=== PATIENT | male | born 1960 | race Caucasian/White ===

== ENCOUNTER 2016-12-07 13:05 | Emergency (ER) | payer BC ==
[2016-12-07 13:38] VITALS: BP 138/63
--- NOTE | 2016-12-07 13:52 | UC ---
Throat Pain/Nasal Balwinder HPI - HPI Summary HPI Summary: complaint of nasal congestion and cough that satretd approx 8-10 days ago for the last 4-5 days he has started to have right ear pain dsinus pressure that has been increasing frequent headaches last nght felt some chills taken benadryl BID and acetmainophen with some relief no use of albuterol during this illenss denies N/V/D, muscle aches - History of Current Complaint Hx Obtained From: Patient <Rosa Ray - Last Filed: 12/07/16 13:55> <Lorne De La Torre - Last Filed: 12/08/16 11:15> - History of Current Complaint Chief Complaint: UCRespiratory Stated Complaint: EAR/SINUS COMPLAINTS Time Seen by Provider: 12/07/16 13:46 - Allergies/Home Medications Allergies/Adverse Reactions: Allergies Allergy/AdvReac Type Severity Reaction Status Date / Time No Known Allergies Allergy Verified 08/13/16 21:36 PMH/Surg Hx/FS Hx/Imm Hx Previously Healthy: Yes Endocrine History Of: Denies: Diabetes, Thyroid Disease Cardiovascular History Of: Denies: Cardiac Disorders, Hypertension, Congestive Heart Failure Respiratory History Of: Reports: Asthma Denies: COPD GI/ History Of: Denies: Ulcer - Surgical History Surgical History: Yes Surgery Procedure, Year, and Place: HERNIA REPAIR, TONSILLECTOMY, CERVICAL DISCECTOMY - Family History Known Family History: Positive: None, Other - [place] Negative: Cardiac Disease, Hypertension, Diabetes - Social History Occupation: Employed Full-time Lives: With Family Alcohol Use: Rare Substance Use Type: None Smoking Status (MU): Never Smoked Tobacco - Immunization History Most Recent Influenza Vaccination: fall 2012 <Rosa Ray - Last Filed: 12/07/16 13:55> Review of Systems Constitutional: Chills Skin: Negative Eyes: Negative ENT: Ear Ache, Nasal Discharge Respiratory: Cough Cardiovascular: Negative Gastrointestinal: Negative Genitourinary: Negative Motor: Negative Neurovascular: Negative Musculoskeletal: Negative Neurological: Negative Psychological: Negative All Other Systems Reviewed And Are Negative: Yes <Rosa Ray - Last Filed: 12/07/16 13:55> Physical Exam Triage Information Reviewed: Yes Appearance: No Pain Distress, Well-Nourished, Ill-Appearing Vital Signs: Initial Vital Signs Temp 98.7 F 12/07/16 13:36 Pulse 85 03/22/17 13:36 Resp 16 12/07/16 13:36 BP 138/63 12/07/16 13:36 Pulse Ox 99 12/07/16 13:36 Vital Signs Reviewed: Yes Eyes: Positive: Conjunctiva Clear ENT: Positive: Pharyngeal erythema, Nasal congestion, Nasal drainage, TM bulging , Other: - maxillary sinus tenderness. Negative: TM red Neck: Positive: No Lymphadenopathy Respiratory: Positive: Lungs clear, Normal breath sounds, No respiratory distress, No accessory muscle use Cardiovascular: Positive: RRR, No Murmur, Pulses Normal Abdomen Description: Positive: Nontender, Soft Bowel Sounds: Positive: Present Musculoskeletal: Positive: No Edema Neurological: Positive: Alert Psychological Exam: Normal Skin Exam: Normal <Rosa Ray - Last Filed: 12/07/16 13:55> Vital Signs: Initial Vital Signs Temp 98.7 F 12/07/16 13:36 Pulse 85 12/07/16 13:36 Resp 16 12/07/16 13:36 BP 138/63 12/07/16 13:36 Pulse Ox 99 12/07/16 13:36 <Lorne De La Torre - Last Filed: 12/08/16 11:15> Throat Pain/Nasal Course/Dx - Course Course Of Treatment: exam completed. will treat for sinusitis- length of illness/sinustenderness - Differential Dx/Diagnosis Differential Diagnosis/HQI/PQRI: Sinusitis, URI Provider Diagnoses: sinusitis <Rosa Ray - Last Filed: 12/07/16 13:55> - Course Assessment/Plan: I was available for consultation. This patient was seen by mid level provider. The patient was not presented, seen, or examined by me. WR. <Lorne De La Torre - Last Filed: 12/08/16 11:15> Discharge <Rosa Ray - Last Filed: 12/07/16 13:55> <Lorne De La Torre - Last Filed: 12/08/16 11:15> - Discharge Plan Condition: Stable Disposition: HOME Prescriptions: Amoxicillin/Clavulanate TAB* [Augmentin TAB 875*] 875 mg PO BID #20 tab Patient Education Materials: Sinusitis (ED) Referrals: Nomi Garcia MD [Primary Care Provider] - Additional Instructions: SINUSITIS What is Sinusitis? Sinusitis is inflammation or infection of the lining of the sinuses behind the bones in your cheeks or forehead. Sinusitis may occur following a common cold, flu, or other infection; allergies; a tooth infection that spreads to the sinuses; swimming in contaminated water; pressure changes in airplanes at high altitudes; violent sneezing or nose blowing or smoking or breathing other peoples smoke. Symptoms Might Include: Nasal Congestion Sneezing Watery eyes, eye irritation, or eye itching Headaches Pressure in the cheeks Wheezing Trouble smelling Sore throat and coughing may occur Treatment Recommendations: Take medicines as prescribed until completely gone. Drink plenty of fluids. Use saline nose spray to thin the mucous and help the sinuses drain. Use a vaporizer or humidifier. Apply warm compresses to the face or forehead several times a day for 10 to 20 minutes. Call Your Doctor or Return Here IF: Your pain increases during treatment. You develop a high temperature. You develop unusual swelling around the eyes. You have difficulty with your vision. You develop a severe headache, earache, or toothache. You develop increased fever or fever that does not respond to medication such as Tylenol?. You have difficulty breathing or catching your breath. You begin to have any other new symptoms that worry you.
== END 2016-12-07 14:26 | disposition home or self-care (01) ==
LOC: UCEAST 13:05
DX: J32.9 Chronic sinusitis, unspecified (principal)
CPT/HCPCS: 99212; G0463

== ENCOUNTER 2017-04-02 13:50 | Emergency (ER) | payer BC ==
[2017-04-02 16:00] VITALS: BP 114/69
--- NOTE | 2017-04-02 16:14 | UC ---
Skin Complaint HPI - History of Current Complaint Chief Complaint: UCRash Time Seen by Provider: 04/02/17 16:03 Stated Complaint: SHINGLES? AGAIN Hx Obtained From: Patient Onset/Duration: Gradual Onset - started last pm with 'sensation" on upper L back near shoulder, saw red bumps, worse today Onset Severity: Mild Current Severity: Mild Character: Redness, Raised, Painful Aggravating: Touch Alleviating: Nothing Associated Signs & Symptoms: Positive: Negative Similar Episode/Dx as: shingles - Allergy/Home Medications Allergies/Adverse Reactions: Allergies Allergy/AdvReac Type Severity Reaction Status Date / Time No Known Allergies Allergy Verified 08/13/16 21:36 Review of Systems Constitutional: Negative Skin: Rash Respiratory: Negative Cardiovascular: Negative Musculoskeletal: Negative Neurological: Negative Psychological: Negative All Other Systems Reviewed And Are Negative: Yes PMH/Surg Hx/FS Hx/Imm Hx Previously Healthy: Yes Endocrine History: Dyslipidemia - Surgical History Surgical History: Yes Surgery Procedure, Year, and Place: HERNIA REPAIR, TONSILLECTOMY, CERVICAL DISCECTOMY - Family History Known Family History: Positive: None, Other - [place] Negative: Cardiac Disease, Hypertension, Diabetes - Social History Occupation: Employed Full-time Lives: With Family Alcohol Use: Rare Substance Use Type: None Smoking Status (MU): Never Smoked Tobacco - Immunization History Most Recent Influenza Vaccination: fall 2012 Physical Exam Triage Information Reviewed: Yes Appearance: Well-Appearing, No Pain Distress, Well-Nourished Vital Signs: Initial Vital Signs Temp 98.0 F 04/02/17 15:57 Pulse 64 04/02/17 15:57 Resp 18 04/02/17 15:57 BP 114/69 04/02/17 15:57 Pulse Ox 97 04/02/17 15:57 Vital Signs Reviewed: Yes Respiratory Exam: Normal Cardiovascular Exam: Normal Neurological Exam: Normal Psychological Exam: Normal Skin: Positive: rashes - erythemic, tender, vesicular lesions upper L back Course/Dx - Differential Diagnoses - Skin Complaint Differential Diagnoses: Cellulitis, Contact Dermatitis, Local Allergic Reaction , Poison Jaleesa, Varicella Zoster - Diagnoses Provider Diagnoses: shingles Discharge - Discharge Plan Condition: Stable Disposition: HOME Prescriptions: ValACYclovir (*) [Valtrex 1 GM(*)] 1 gm PO TID #18 tab Patient Education Materials: Shingles (ED) Referrals: Nomi Garcia MD [Primary Care Provider] - 1 Week (if not resolved) Additional Instructions: start antivirals today as prescribed
[2017-04-02] MEDS ORDERED: Acyclovir* 200 MG CAP PO ONE ×2 (16:16→16:20)
== END 2017-04-02 16:39 | disposition home or self-care (01) ==
LOC: UCEAST 13:50
DX: B02.9 Zoster without complications (principal)
CPT/HCPCS: 99212; A9270-GY; G0463

== ENCOUNTER 2017-10-16 13:12 | Emergency (ER) | payer BC ==
[2017-10-16 15:24] VITALS: BP 131/80
--- NOTE | 2017-10-16 15:41 | UC ---
Throat Pain/Nasal Balwinder HPI - HPI Summary HPI Summary: Pt presents with sinus pain/pressure/congestion and right ear pain for 1 week. He has been taking benadryl and using nasacort with little relief. Denies fever , chills, SOB, chest pain, abdominal pain, n/v/d/c, body aches. - History of Current Complaint Chief Complaint: UCRespiratory Stated Complaint: CONGESTED Time Seen by Provider: 10/16/17 15:28 Hx Obtained From: Patient Onset/Duration: Gradual Onset Severity: Mild Pain Intensity: 3 Pain Scale Used: 0-10 Numeric - Allergies/Home Medications Allergies/Adverse Reactions: Allergies Allergy/AdvReac Type Severity Reaction Status Date / Time No Known Allergies Allergy Verified 10/16/17 15:25 PMH/Surg Hx/FS Hx/Imm Hx Previously Healthy: Yes Endocrine History: Dyslipidemia - Surgical History Surgical History: Yes Surgery Procedure, Year, and Place: HERNIA REPAIR, TONSILLECTOMY, CERVICAL DISCECTOMY - Family History Known Family History: Positive: None, Other - [place] Negative: Cardiac Disease, Hypertension, Diabetes - Social History Occupation: Employed Full-time Lives: With Family Alcohol Use: Rare Substance Use Type: None Smoking Status (MU): Never Smoked Tobacco - Immunization History Most Recent Influenza Vaccination: fall 2012 Review of Systems Constitutional: Negative Skin: Negative Eyes: Negative ENT: Ear Ache, Nasal Discharge, Sinus Congestion, Sinus Pain/Tenderness Respiratory: Negative Cardiovascular: Negative Gastrointestinal: Negative Neurological: Negative Psychological: Negative All Other Systems Reviewed And Are Negative: Yes Physical Exam Triage Information Reviewed: Yes Appearance: Well-Appearing, No Pain Distress, Well-Nourished Vital Signs: Initial Vital Signs Temp 98.6 F 10/16/17 15:21 Pulse 92 10/16/17 15:21 Resp 18 10/16/17 15:21 BP 131/80 10/16/17 15:21 Pulse Ox 100 10/16/17 15:21 Vital Signs Reviewed: Yes Eyes: Positive: Conjunctiva Clear. Negative: Conjunctiva Inflamed, Discharge ENT: Positive: Hearing grossly normal, Pharynx normal, Nasal congestion, Nasal drainage, TMs normal, Sinus tenderness. Negative: Pharyngeal erythema, TM bulging, TM dull, TM red, Tonsillar swelling, Tonsillar exudate, Hoarse voice, Uvula midline Neck: Positive: Supple, Nontender, No Lymphadenopathy Respiratory: Positive: Chest non-tender, Lungs clear, Normal breath sounds, No respiratory distress, No accessory muscle use Cardiovascular: Positive: RRR, No Murmur, Pulses Normal Neurological: Positive: Alert. Negative: Fatigued Psychological: Positive: Age Appropriate Behavior Skin: Negative: rashes Throat Pain/Nasal Course/Dx - Course Course Of Treatment: Sinusitis - Amoxicillin - Differential Dx/Diagnosis Provider Diagnoses: Sinusitis Discharge - Discharge Plan Condition: Stable Disposition: HOME Prescriptions: Amoxicillin PO (*) [Amoxicillin 500 MG CAP*] 500 mg PO Q12H #20 cap Patient Education Materials: Sinusitis (ED) Referrals: Nomi Garcia MD [Primary Care Provider] - Additional Instructions: If you develop a fever, shortness of breath, chest pain, new or worsening symptoms - please call your PCP or go to the ED.
== END 2017-10-16 16:20 | disposition home or self-care (01) ==
LOC: UCEAST 13:12
DX: J32.9 Chronic sinusitis, unspecified (principal)
CPT/HCPCS: 99212; G0463

== ENCOUNTER 2017-10-20 18:18 | Emergency (ER) | payer BC ==
[2017-10-20 18:31] VITALS: BP 139/74
--- NOTE | 2017-10-20 21:07 | UC ---
Respiratory Complaint HPI - HPI Summary HPI Summary: States he has been taking amoxil as prescribed since 10-16-17 but has been awoken by wheezing sound and has some SOB with persistent dry cough. He has been moving and inhaling a lot of dust. History of seasonal allergies an to dust , denies history of asthma or exposure to tobacco or fumes. States several years ago he had pneumonia right lung and had to stay in ICU for a week. He wants to confirm his lungs are fine. - History of Current Complaint Chief Complaint: UCRespiratory Stated Complaint: URI Time Seen by Provider: 10/20/17 20:38 Hx Obtained From: Patient Onset/Duration: Sudden Onset, Lasting Days Timing: Intermittent Episodes Severity Initially: Moderate Pain Intensity: 0 Character: Cough: Nonproductive Aggravating Factors: Allergens Alleviating Factors: Upright Position Associated Signs And Symptoms: Positive: Dyspnea Related History: Seasonal Allergies - Risk Factors Pulmonary Embolism Risk Factors: Negative Cardiac Risk Factors: Negative Pseudomonas Risk Factors: Negative Tuberculosis Risk Factors: Negative - Allergies/Home Medications Allergies/Adverse Reactions: Allergies Allergy/AdvReac Type Severity Reaction Status Date / Time No Known Allergies Allergy Verified 10/16/17 15:25 PMH/Surg Hx/FS Hx/Imm Hx Previously Healthy: Yes Endocrine History: Dyslipidemia Psychological History: Other - insomnia Other Psychological History: insomnia - Surgical History Surgical History: Yes Surgery Procedure, Year, and Place: HERNIA REPAIR, TONSILLECTOMY, CERVICAL DISCECTOMY - Family History Known Family History: Positive: None, Other - [place] Negative: Cardiac Disease, Hypertension, Diabetes - Social History Alcohol Use: Rare Substance Use Type: None Smoking Status (MU): Never Smoked Tobacco - Immunization History Most Recent Influenza Vaccination: fall 2012 Review of Systems Constitutional: Chills Respiratory: Shortness Of Breath, Cough All Other Systems Reviewed And Are Negative: Yes Physical Exam Triage Information Reviewed: Yes Appearance: Well-Appearing Vital Signs: Initial Vital Signs Temp 97.4 F 10/20/17 18:28 Pulse 70 10/20/17 18:28 Resp 18 10/20/17 18:28 BP 139/74 10/20/17 18:28 Pulse Ox 98 10/20/17 18:28 Vital Signs Reviewed: Yes Eye Exam: Normal ENT Exam: Normal Dental Exam: Normal Neck exam: Normal Respiratory: Positive: Rhonchi, Wheezing, Inspiration Cardiovascular Exam: Normal Abdominal Exam: Normal UC Diagnostic Evaluation - Laboratory O2 Sat by Pulse Oximetry: 98 Respiratory Course/Dx - Course Course Of Treatment: start inhaler, reviewed technique with patient. Avoid allergens CXR findings of Left lower lung atelectasies. Breathing exercises - Differential Dx/Diagnosis Provider Diagnoses: Bronchitis. Left lower lung atelectasies, history of pneumonia in the past Discharge - Discharge Plan Condition: Stable Disposition: HOME Patient Education Materials: Acute Bronchitis (ED), Atelectasis (ED) Referrals: Nomi Garcia MD [Primary Care Provider] -
--- NOTE | 2017-10-20 21:24 | RAD ---
INDICATION: Cough and shortness of breath. COMPARISON: Comparison is made with a prior chest x-ray study from April 16, 2016. TECHNIQUE: Dual-energy PA and lateral views of the chest were obtained. FINDINGS: The heart is within normal limits in size. Mediastinal and hilar contours appear within normal limits. The lungs are underinflated. There are linear densities at the left lung base most consistent with subsegmental atelectasis. The lungs are otherwise clear. No pleural effusion is seen. Postsurgical changes are noted in the lower cervical spine. IMPRESSION: LOW LUNG VOLUMES MILD LEFT BASILAR ATELECTASIS.
== END 2017-10-20 21:58 | disposition home or self-care (01) ==
LOC: UCEAST 18:18
DX: J40 Bronchitis, not specified as acute or chronic (principal); J98.11 Atelectasis; Z87.01 Personal history of pneumonia (recurrent)
CPT/HCPCS: 71046; 99212; G0463

== ENCOUNTER 2017-11-19 11:32 | Emergency (ER) | payer BC ==
[2017-11-19 12:15] VITALS: BP 128/73
--- NOTE | 2017-11-19 12:29 | UC ---
Respiratory Complaint HPI - HPI Summary HPI Summary: 57 y/o male presents to the urgent care c/o influenza-like symptoms, MILLIGAN, productive cough fever, chills,sore throat, body aches, chills. Pt reports his PCP Dx clinically w. Influenza and Rx Tamiflu PO on 11/14/2017. No swab done. Pt still w/ fevers, chills, decrease appetite, body aches and productive cough w/ yellowish phlegm. He has Hx of pneumonia about 2 years ago where he end up at the ICU. So he is concern w/ pneumonia. Pt has been taking Tylenol PO to alleviate symptoms. Pt denies SOB, chest pain, abdominal pain, N/V/D. - History of Current Complaint Chief Complaint: UCRespiratory Stated Complaint: FLU SYMPTOMS Time Seen by Provider: 11/19/17 12:22 Hx Obtained From: Patient Onset/Duration: Gradual Onset, Lasting Days - 5 days, Still Present, Worse Since - yesterday Timing: Constant Severity Initially: Mild Severity Currently: Moderate Pain Intensity: 7 Pain Scale Used: 0-10 Numeric Character: Cough: Productive, Sputum Description: - yellowish sputum Aggravating Factors: Recumbent Position Alleviating Factors: Bronchodilator, OTC Meds Associated Signs And Symptoms: Positive: Fever, Chills, URI, Nasal Congestion, Sinus Discomfort - Risk Factors Pulmonary Embolism Risk Factors: Negative Cardiac Risk Factors: Elevated Lipids Tuberculosis Risk Factors: Negative - Allergies/Home Medications Allergies/Adverse Reactions: Allergies Allergy/AdvReac Type Severity Reaction Status Date / Time No Known Allergies Allergy Verified 11/19/17 12:15 Home Medications: Home Medications Albuterol HFA INHALER* [Ventolin HFA Inhaler*] 1 puff INH DAILY 11/19/17 [ History Confirmed 11/19/17] Oseltamivir CAP* [Tamiflu CAP*] 1 tab PO BID 11/19/17 [History Confirmed ] PMH/Surg Hx/FS Hx/Imm Hx Previously Healthy: Yes Endocrine History: Dyslipidemia Respiratory History: Pneumonia Other Respiratory History: recurrent sinusitis - Surgical History Surgical History: Yes Surgery Procedure, Year, and Place: HERNIA REPAIR, TONSILLECTOMY, CERVICAL DISCECTOMY - Family History Known Family History: Positive: Cardiac Disease - [place] Negative: Hypertension, Diabetes - Social History Occupation: Employed Full-time Lives: With Family Alcohol Use: Rare Substance Use Type: None Smoking Status (MU): Never Smoked Tobacco - Immunization History Most Recent Influenza Vaccination: fall 2012 Review of Systems Constitutional: Fever, Chills, Fatigue, Other - body aches Skin: Negative Eyes: Negative ENT: Sore Throat, Ear Ache - B/L ear pain, Nasal Discharge, Sinus Congestion, Sinus Pain/Tenderness Respiratory: Cough - productive Cardiovascular: Negative Gastrointestinal: Negative Genitourinary: Negative Motor: Negative Musculoskeletal: Negative Neurological: Headache Psychological: Negative Is Patient Immunocompromised?: No All Other Systems Reviewed And Are Negative: Yes Physical Exam Triage Information Reviewed: Yes Vital Signs: Initial Vital Signs Temp 97.5 F 11/19/17 12:11 Pulse 89 11/19/17 12:11 Resp 18 11/19/17 12:11 BP 128/73 11/19/17 12:11 Pulse Ox 100 11/19/17 12:11 - Additional Comments VITAL SIGNS: Reviewed. GENERAL: Patient is a well developed and nourished male who is sitting comfortable in the examining table. Patient is not in any acute respiratory distress. HEAD AND FACE: No signs of trauma. No ecchymosis, hematomas or skull depressions. No sinus tenderness. edematous erythematous nasal mucosa with yellowish discharge, EYES: PERRLA, EOMI x 2, No injected conjunctiva, clear watery eyes, no nystagmus. No photophobia. EARS: Hearing grossly intact. Ear canals and tympanic membranes are within normal limits. MOUTH: Positive pharynx with erythema, no exudates,no palatal petechiae. no B/L tonsillar enlargement Uvula in midline. NECK: Supple, trachea is midline, Positive anterior cervical lymphadenopathy, no JVD, no carotid bruit, no c-spine tenderness, neck with full ROM. No meningeal signs, no Kernig's or brudzinskis signs. CHEST: Symmetric, no tenderness at palpation LUNGS: Positive breath sound . B/L scattered crackels LF>RT and rhonchi. No wheezing or rales CVS: Regular rate and rhythm, S1 and S2 present, no murmurs or gallops appreciated. ABDOMEN: Soft, non-tender. No signs of distention. No rebound no guarding, and no masses palpated. Bowel sounds are normal. EXTREMITIES: FROM in all major joints, no edema, no cyanosis or clubbing. NEURO: Alert and oriented x 3. No acute neurological deficits. Speech is normal and follows commands. SKIN: Dry and warm UC Diagnostic Evaluation - Laboratory O2 Sat by Pulse Oximetry: 100 Respiratory Course/Dx - Course Course Of Treatment: 57 y/o male presents to the urgent care c/o influenza-like symptoms, MILLIGAN, productive cough fever, chills,sore throat, body aches, chills. Pt reports his PCP Dx clinically w. Influenza and Rx Tamiflu PO on 11/14/2017. No swab done. Pt still w/ fevers, chills, decrease appetite, body aches and productive cough w/ yellowish phlegm. He has Hx of pneumonia about 2 years ago where he end up at the ICU. So he is concern w/ pneumonia. Pt has been taking Tylenol PO to alleviate symptoms. Pt denies SOB, chest pain, abdominal pain, N/V /D. Hx obtained. Pt w/ scatterred crackles and rhonchi in B/L lungs LF>RT on examiantion, O2Sat:100%. Chest -X ray ordered to r/o pneumonia. Impression: Patchy left side infiltrates observed. Pt still taking Tamiflu PO. Pt Rx Doxicycline PO and Benzonate tabs PO to alleviate cough. Pt advised to f/u w/ PCP in 2-3 days for re-check on symptoms. Ifworsening symptom to go immediately to the ER for further treatment. Advised to increase fluid, eat well and rest. Pt understood and agreed w/ plan of care. - Differential Dx/Diagnosis Differential Diagnosis/HQI/PQRI: Bronchitis, Influenza, Lower Resp Infection, Sinusitis, Other - Pneumonia Provider Diagnoses: 1-Pneumonia. 2-Cough Discharge - Discharge Plan Condition: Stable Disposition: HOME Prescriptions: Benzonatate CAP* [Tessalon 100 MG CAP*] 100 mg PO TID PRN #21 cap PRN Reason: Cough DOXYcycline CAP(*) [DOXYcycline 100MG CAP(*)] 100 mg PO BID #20 cap Patient Education Materials: Community Acquired Pneumonia (ED) Forms: *Work Release Referrals: Nomi Garcia MD [Primary Care Provider] - 3 Days Additional Instructions: 1-Please take full course of antibiotic to avoid resistance. 2-Take Tessalon tabs PO as directed and continue use the Ventolin inhaler to alleviate cough. Increase fluid intake, rest and eat well. 3- If symptoms do not improve or worsen or your develop SOB with fever and severe cough please go immediately to the ER further evaluation and treatment. 4-See your PCP in 2-3 days to check your symptoms are improving
--- NOTE | 2017-11-19 13:03 | RAD ---
INDICATION: Cough. Fever. COMPARISON: October 20, 2017 TECHNIQUE: PA and lateral dual-energy views were obtained. FINDINGS: Bones/Soft Tissues: There are no acute bony findings. Cardiomediastinal: The cardiomediastinal silhouette is normal. Lungs: There are patchy left-sided infiltrates. The remaining lung harvey are clear. Pleura: There are no pleural effusions. Other: None IMPRESSION: PATCHY LEFT-SIDED INFILTRATES.
== END 2017-11-19 13:29 | disposition home or self-care (01) ==
LOC: UCEAST 12:00
DX: J11.1 Influenza due to unidentified influenza virus with other respiratory manifestations (principal); R50.9 Fever, unspecified; R05 Cough; E78.5 Hyperlipidemia, unspecified
CPT/HCPCS: 71046; 99212; G0463

== ENCOUNTER 2018-09-08 12:22 | Emergency (ER) | payer BC ==
[2018-09-08 13:08] VITALS: BP 133/65
--- NOTE | 2018-09-08 13:11 | UC ---
Respiratory Complaint HPI - HPI Summary HPI Summary: 58 yo male presents with productive cough for the last week. He has been taking mucinex OTC. He has had PNA in the past and is concerned it may be that again. Denies fever, chills, sore throat, SOB, chest pain, n/v. - History of Current Complaint Chief Complaint: UCGeneralIllness Stated Complaint: COUGH,CONGESTION Time Seen by Provider: 09/08/18 13:10 Hx Obtained From: Patient Onset/Duration: Gradual Onset Severity Initially: Mild Severity Currently: Mild Pain Intensity: 3 Pain Scale Used: 0-10 Numeric Character: Cough: Productive - Allergies/Home Medications Allergies/Adverse Reactions: Allergies Allergy/AdvReac Type Severity Reaction Status Date / Time No Known Allergies Allergy Verified 09/08/18 13:08 Home Medications: Home Medications Acetaminophen [Tylenol] 325 mg PO DAILY PRN 09/08/18 [History Confirmed 09/08/18 ] PMH/Surg Hx/FS Hx/Imm Hx Endocrine History: Dyslipidemia - Surgical History Surgical History: Yes Surgery Procedure, Year, and Place: HERNIA REPAIR, TONSILLECTOMY, CERVICAL DISCECTOMY - Family History Known Family History: Positive: Cardiac Disease - [place], Other - [place] Negative: Hypertension, Diabetes - Social History Occupation: Employed Full-time Lives: With Family Alcohol Use: Occasionally Substance Use Type: None Smoking Status (MU): Never Smoked Tobacco - Immunization History Most Recent Influenza Vaccination: fall 2012 Review of Systems All Other Systems Reviewed And Are Negative: Yes Constitutional: Positive: Negative Skin: Positive: Negative Eyes: Positive: Negative ENT: Positive: Negative Respiratory: Positive: Cough Cardiovascular: Positive: Negative Gastrointestinal: Positive: Negative Neurovascular: Positive: Negative Neurological: Positive: Negative Psychological: Positive: Negative Physical Exam - Summary Physical Exam Summary: GENERAL: NAD. WDWN. No pain distress. SKIN: No rashes, sores, lesions, or open wounds. HEENT: Head: AT/NC Eyes: EOM intact. Conjunctiva clear without inflammation or discharge. Ears: Hearing grossly normal. TMs intact, no bulging, erythema, or edema. Nose: Nasal mucosa pink and moist. NTTP maxillary and frontal sinus. Throat: Posterior oropharynx without exudates or erythema. Uvula midline. NECK: Supple. Nontender. No lymphadenopathy. CHEST: CTAB. No r/r/w. No accessory muscle use. Breathing comfortably and in no distress. CV: RRR. Without m/r/g. Pulses intact. Cap refill <2seconds NEURO: Alert. PSYCH: Age appropriate behavior. Triage Information Reviewed: Yes Vital Signs: Initial Vital Signs Temp 97 F 09/08/18 13:01 Pulse 88 09/08/18 13:01 Resp 18 09/08/18 13:01 BP 133/65 09/08/18 13:01 Pulse Ox 97 09/08/18 13:01 Vital Signs Reviewed: Yes Diagnostic Evaluation - Laboratory O2 Sat by Pulse Oximetry: 97 Respiratory Course/Dx - Course Course Of Treatment: CXR: IMPRESSION: Left basilar atelectasis without definite evidence of pneumonia. Suspect viral cough. Advised pt to continue mucinex and try Delsym OTC. F/u if symptoms persist or worsen for a recheck. - Differential Dx/Diagnosis Provider Diagnosis: Cough Discharge - Sign-Out/Discharge Documenting (check all that apply): Patient Departure All imaging exams completed and their final reports reviewed: Yes - Discharge Plan Condition: Stable Disposition: HOME Patient Education Materials: Dextromethorphan (By mouth), Acute Cough (ED) Referrals: Nomi Garcia MD [Primary Care Provider] - Additional Instructions: If you develop a fever, shortness of breath, chest pain, new or worsening symptoms - please call your PCP or go to the ED. - Billing Disposition and Condition Condition: STABLE Disposition: Home
== END 2018-09-08 13:58 | disposition home or self-care (01) ==
LOC: UCEAST 12:22
DX: R05 Cough (principal)
CPT/HCPCS: 71046; 99211; G0463

== ENCOUNTER 2018-11-24 18:53 | Emergency (ER) | payer BC ==
[2018-11-24 19:01] VITALS: BP 147/79
[2018-11-24] MEDS ORDERED: Albuterol/Ipratropium NEB.SOL* Albuterol 2.5 MG/Ipratropium 0.5 MG 3 ML INH ONE (19:11)
--- NOTE | 2018-11-24 19:11 | UC ---
Respiratory Complaint HPI - HPI Summary HPI Summary: 2 weeks ago began with cough no fever and no known illness exposures---seen pcp rx albuterol and steroid MDI---wheezing seems to have started a few days ago and is now getting worse at night---still no fevers - History of Current Complaint Chief Complaint: UCRespiratory Stated Complaint: CONGESTED Time Seen by Provider: 11/24/18 19:05 Hx Obtained From: Patient Onset/Duration: Gradual Onset, Lasting Days, Still Present Timing: Intermittent Episodes - seems worse at night Pain Intensity: 0 Pain Scale Used: 0-10 Numeric Character: Cough: Nonproductive Aggravating Factors: Recumbent Position Alleviating Factors: Bronchodilator Associated Signs And Symptoms: Positive: URI - Allergies/Home Medications Allergies/Adverse Reactions: Allergies Allergy/AdvReac Type Severity Reaction Status Date / Time No Known Allergies Allergy Verified 11/24/18 19:02 PMH/Surg Hx/FS Hx/Imm Hx Previously Healthy: No Endocrine History: Dyslipidemia - Surgical History Surgical History: Yes Surgery Procedure, Year, and Place: HERNIA REPAIR, TONSILLECTOMY, CERVICAL DISCECTOMY - Family History Known Family History: Positive: None, Cardiac Disease - [place], Other - [place] Negative: Hypertension, Diabetes - Social History Occupation: Employed Full-time Lives: With Family Alcohol Use: Occasionally Substance Use Type: None Smoking Status (MU): Never Smoked Tobacco - Immunization History Most Recent Influenza Vaccination: fall 2012 Review of Systems All Other Systems Reviewed And Are Negative: Yes Constitutional: Positive: Negative Skin: Positive: Negative Eyes: Positive: Negative ENT: Positive: Negative Respiratory: Positive: Cough Cardiovascular: Positive: Negative Gastrointestinal: Positive: Negative Genitourinary: Positive: Negative Motor: Positive: Negative Neurovascular: Positive: Negative Musculoskeletal: Positive: Negative Neurological: Positive: Negative Psychological: Positive: Negative Is Patient Immunocompromised?: No Physical Exam Triage Information Reviewed: Yes Appearance: Well-Appearing, No Pain Distress, Well-Nourished Vital Signs: Initial Vital Signs Temp 98.5 F 11/24/18 18:58 Pulse 92 11/24/18 18:58 Resp 16 11/24/18 18:58 BP 147/79 11/24/18 18:58 Pulse Ox 95 11/24/18 18:58 Vital Signs Reviewed: Yes Eye Exam: Normal Eyes: Positive: Conjunctiva Clear ENT Exam: Normal ENT: Positive: Normal ENT inspection, Hearing grossly normal, Pharynx normal, Pharyngeal erythema, TMs normal, Uvula midline. Negative: Nasal congestion, Tonsillar swelling, Tonsillar exudate, Trismus, Muffled voice, Hoarse voice, Dental tenderness, Sinus tenderness Dental Exam: Normal Neck exam: Normal Neck: Positive: Supple, Nontender, No Lymphadenopathy Respiratory Exam: Normal Respiratory: Positive: Chest non-tender, Lungs clear, Normal breath sounds, No respiratory distress, No accessory muscle use Cardiovascular Exam: Normal Cardiovascular: Positive: RRR, No Murmur, Pulses Normal, Brisk Capillary Refill Musculoskeletal Exam: Normal Musculoskeletal: Positive: Strength Intact, ROM Intact, No Edema Neurological Exam: Normal Neurological: Positive: Alert, Muscle Tone Normal Psychological Exam: Normal Skin Exam: Normal Respiratory Course/Dx - Course Course Of Treatment: improved aeration after neb--will start on zithromax and use spacer with inhalers---follow blood pressure and resolve of bronchititis with pcp in 1 week - Differential Dx/Diagnosis Provider Diagnosis: Bronchitis, Hypertension Discharge - Sign-Out/Discharge Documenting (check all that apply): Patient Departure All imaging exams completed and their final reports reviewed: No Studies - Discharge Plan Condition: Stable Disposition: HOME Prescriptions: Azithromycin TAB* [Zithromax TAB (Z-CLINT) 250 mg #6 tabs] 250 mg PO DAILY #4 tab Patient Education Materials: Acute Bronchitis (ED), Hypertension (ED), Bronchospasm (ED), How to Use a Metered-Dose Inhaler and a Spacer (ED) Referrals: Nomi Garcia MD [Primary Care Provider] - 1 Week - Billing Disposition and Condition Condition: STABLE Disposition: Home
[2018-11-24] MEDS ORDERED: Azithromycin TAB* 250 MG PO ONE (19:36)
== END 2018-11-24 19:59 | disposition home or self-care (01) ==
LOC: UCEAST 18:53
DX: J40 Bronchitis, not specified as acute or chronic (principal); I10 Essential (primary) hypertension; E78.5 Hyperlipidemia, unspecified
CPT/HCPCS: 99212; A9270-GY; G0463

== ENCOUNTER 2019-01-15 10:25 | Emergency (ER) | payer BC ==
[2019-01-15 10:51] VITALS: BP 122/70
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
== END 2019-01-15 11:10 | disposition home or self-care (01) ==
LOC: UCEAST 10:25
DX: H66.91 Otitis media, unspecified, right ear (principal); E78.5 Hyperlipidemia, unspecified
CPT/HCPCS: 99212; G0463

== ENCOUNTER 2019-07-01 15:02 | Emergency (ER) | payer BC ==
--- OUTSIDE RECORDS SUMMARY | 2019-07-01 15:07 | XMS REPORT | Continuity of Care Document ---
:1960 External Reference #:[id number] Author Name Quincy Cross DO Address [address] [place] [id number] Care Team Providers Name Role Phone Nomi Garcia MD - Family Medicine Care Team Information Web Marketing Intern [phone] Problems Description No Information Available Social History Type Date Description Comments Sex Unknown Tobacco Use Start: Unknown Patient has never smoked Smoking Status Reviewed: 04/12/19 Patient has never smoked Allergies, Adverse Reactions, Alerts Description No Known Drug Allergies Medications Active Medications SIG Qnty Indications Ordering Provider Date Hydrocodone-Acetamino 1 by mouth every 40tabs Nomi Garcia MD 03/05/2019 phen 4 h as needed 5-325mg Tablets Zolpidem Tartrate Take 1 To 2 60tabs Nomi Garcia MD 12/13/2018 5mg Tablets By Mouth Tablets AT Bedtime as Needed For Sleep, Maximum Daily Dose Of 2 Tablets Omeprazole 1 by mouth daily 90caps K21.0 [facility], 12/05/2018 40mg on empty HAL Gerardo Capsules DR stomach, no other meds or food for 20-30 mins Mometasone Furoate apply three 45units Nomi Garcia MD 08/23/2018 0.1% times a day as Cream needed Sildenafil Citrate take 1/2- 1 10tabs Nomi Garcia MD 08/23/2018 50mg tablet one hour Tablets prior to sexual relations, maximum daily dose 1 tablet Pravastatin Sodium 1 by mouth every 90tabs Jorge Luis Gillespie, 07/26/2015 80mg day MD Tablets Fluticasone inhale 2 sprays 16units Nomi Garcia MD 09/08/2012 Propionate in each nostril 50mcg/Act daily Suspension Benadryl Dye-Free 1 tab PO Q am Unknown Allergyliquid-Gels 25mg Capsules History Medications Levofloxacin 1 by mouth 10tabs H10.021 [place], 02/27/2019 - 500mg every day for Humaira MOSS GATHERER 04/12/2019 Tablets 10 days Sulfacetamide Sodium 1-2 drops into 15units H10.021 AmadoucamrynNaida, - affected eye MOSS GATHERER 04/12/2019 10% Solution every four hours while awake until clear, continue for one more day. not to exceed 7 days of use Immunizations Description No Information Available Vital Signs Date Vital Result Comment 04/12/2019 2:33pm Height 67.5 inches 5'7.50" Weight 200.00 lb BP Systolic 123 mmHg BP Diastolic 73 mmHg Heart Rate 66 /min BMI (Body Mass Index) 30.9 kg/m2 Results Test Date Facility Test Result H/L Range Note Xray 03/20/2019 [facility] Radiology Chest PA & Lat <pending> 2VWS Ua 02/27/2019 [facility] WBC <pending> Microscopic(!) Ua RBC <pending> Ua Epithelial Cells <pending> Ua Crystals <pending> Ua Bacteria <pending> [facility]a Mucous <pending> Ua Amorphous <pending> Ua Yeast <pending> Ua Casts <pending> CBC W/Auto 02/27/2019 [facility] White Blood <pending> Differential(!) Count Ser Auto CNT RBC Red Blood Count <pending> Hemoglobin Blood <pending> Hematocrit <pending> MCV (Corpuscular Volume) <pending> MCH (Corpuscular Hemoglobin) <pending> MCHC (Corpuscular Hemog Conc) <pending> RDW <pending> Platelet Count Blood Auto CNT <pending> MPV <pending> Lymph% <pending> [place]% <pending> Neutrophil % <pending> Absolute Lymphocytes <pending> Absolute Monocytes <pending> Absolute Neutrophils <pending> CMP(!) 02/27/2019 [facility] Sodium(!) <pending> Potassium(!) <pending> Chloride Serum/Plasma(!) <pending> Carbon Dioxide Ser/Plasm(!) <pending> BUN - Urea Nitrogen(!) <pending> Calcium Ser/Plasma Mass/Vol(!) <pending> Creatinine Serum Mass/Vol(!) <pending> Glucose Serum(!) <pending> BUN/Creatinine Ratio(!) <pending> Albumin Serum/Plasma(!) <pending> Alkaline Phosphatase(!) <pending> Bilirubin Total Mass/Vol(!) <pending> Ast - Sgot <pending> Alt - SGPT <pending> Protein Total <pending> CBC Auto Diff 02/27/2019 N2N/CCD Import White Blood Count 9.4 10^3/uL 3.5-10.8 Red Blood Count 4.90 10^6/uL 4.18-5.48 Hemoglobin 13.4 g/dL Low 14-18 Hematocrit 40 % Low 42-52 Mean Corpuscular Volume 82 fL 80-94 Mean Corpuscular Hemoglobin 27 pg 27-31 Mean Corpuscular HGB Conc 33 g/dL 31-36 Red Cell Distribution Width 14 % 10-15 Platelet Count 326 10^3/uL 150-450 Mean Platelet Volume 8.0 fL 7.4-10.4 Abs Neutrophils 5.7 10^3/uL 1.5-7.7 Abs Lymphocytes 2.4 10^3/uL 1-4.8 Abs Monocytes 1.1 10^3/uL High 0-0.8 Abs Eosinophils 0.1 10^3/uL 0-0.6 Abs Basophils 0.1 10^3/uL 0-0.2 Abs Nucleated RBC 0.0 10^3/uL Granulocyte % 60.7 % Lymphocyte % 25.6 % Monocyte % 11.3 % Eosinophil % 1.5 % Basophil % 0.9 % Nucleated Red Blood Cells % 0.0 1 Urinalysis Profile 02/27/2019 N2N/flikdate Import Urine Color Yellow Urine Appearance Clear Urine Specific Upson 1.004 1 Low 1.01-1.03 Urine pH 7.0 1 5-9 Urine Urobilinogen Negative Urine Ketones Negative Urine Protein Negative Urine Leukocytes Negative Urine Blood Negative Urine Nitrite Negative Urine Bilirubin Negative Urine Glucose Negative Comp Metabolic Panel 02/27/2019 N2N/flikdate Import Sodium 142 mmol/L 135- 145 Potassium 4.2 mmol/L 3.5-5 Chloride 106 mmol/L 101-111 Co2 Carbon Dioxide 29 mmol/L 22-32 Anion Gap 7 mmol/L 2-11 Glucose 87 mg/dL 70-100 Blood Urea Nitrogen 8 mg/dL 6-24 Creatinine 0.72 mg/dL 0.67-1.17 BUN/Creatinine Ratio 11.1 1 8-20 Calcium 8.8 mg/dL 8.6-10.3 Total Protein 5.3 g/dL Low 6.4-8.9 Albumin 3.9 g/dL 3.2-5.2 Globulin 1.4 g/dL Low 2-4 Albumin/Globulin Ratio 2.8 1 1-3 Total Bilirubin 0.60 mg/dL 0.2-1 Alkaline Phosphatase 129 U/L High 34-104 Alt 30 U/L 7-52 Ast 17 U/L 13-39 Egfr Non- 111.0 1 Egfr 134.3 1 1 Lab Results 02/27/2019 N2N/CCD Import LDH 161 U/L 140-271 Xray 02/27/2019 [facility] Radiology Chest PA & Lat <pending> 2VWS CBC Manual 02/22/2019 N2N/CCD Import WBC 16.14 1 High 4-10 Diff-Fma RBC 5.40 1 3.93-6 Hemoglobin (Fma/CMC/CTX) 14.8 g/dL 12-17 Hematocrit (Fma/CMC/CTX) 44.2 % 35-50 Mean Corpuscular Vol 81.9 fL 80-95 Mean Corpuscular Hemoglobin 27.4 pg 25.6-32.2 Mean Corpuscular Hemo Concen 33.5 g/dL 32.2-36 Platelets 266 10^3/uL 163-400 RDW 13.2 1 11.6-13.7 Mean Platelet Volume 9.5 fL 8-12.4 Neutrophil % 59 % 34-70 Band Neutrophil 17 % High 1-7 Lymph% 20 % 20-52 Monocytes % 3 % Low 5-12 Eos % 1 % 0.7-7 Comment rbc/plts normal Lab Results 02/22/2019 N2N/CCD Import HIV 1&2 Antibody Screen (Fma) Negative Monospot (Fma/Centrex) Negative Quickstrep Negative Lab Results 02/22/2019 N2N/CCD Import C-Reactive Protein, 74.2 mg/L High 0-4.9 2, 3 Quant Interpretation: See Comment: 4 Ebv Ab Vca, IgM <36.0 U/mL 0-35.9 5 Ebv Early Antigen Ab, IgG <9.0 U/mL 0-8.9 6 Ebv Ab Vca, IgG <18.0 U/mL 0-17.9 7 Ebv Nuclear Antigen Ab, IgG <18.0 U/mL 0-17.9 8 Lab Results 02/22/2019 N2N/CCD Import Interpretation: See Comment: 9 Ebv Ab Vca, IgM <36.0 U/mL 0-35.9 10 Ebv Early Antigen Ab, IgG <9.0 U/mL 0-8.9 11 Ebv Ab Vca, IgG <18.0 U/mL 0-17.9 12 Ebv Nuclear Antigen Ab, IgG <18.0 U/mL 0-17.9 13 CMV Quant Dna PCR 02/22/2019 N2N/CCD Import CMV Quant Dna PCR Negative Iu/ ml 14 Plasma (Plasma) log10 CMV Qn Dna Pl TNP [id number]/mL 15 1 Because ethnic data is not always readily available, this report includes an eGFR for both -Americans and non- Americans. The National Kidney Disease Education Program (NKDEP) does not endorse the use of the MDRD equation for patients that are not between the ages of 18 and 70, are , have extremes of body size, muscle mass, or nutritional status, or are non- or non-. According to the National Kidney Foundation, irrespective of diagnosis, the stage of the disease is based on the level of kidney function: Stage Description GFR(mL/min/1.73 m(2)) 1 Kidney damage with normal or decreased GFR 90 2 Kidney damage with mild decrease in GFR 60-89 3 Moderate decrease in GFR 30-59 4 Severe decrease in GFR 15-29 5 Kidney failure <15 (or dialysis) 2 FROZEN 3 Effective March 04, 2019 the reference interval for C-Reactive Protein, Quant, will be changing to: Age Male Female 0 - 30 days Not Estab. Not Estab. 1 month - 17 years 0 - 7 0 - 9 >17 years 0 - 10 0 - 10 4 Effective March 04, 2019 the reference interval for C-Reactive Protein, Quant, will be changing to: Age Male Female 0 - 30 days Not Estab. Not Estab. 1 month - 17 years 0 - 7 0 - 9 >17 years 0 - 10 0 - 10 5 Negative <36.0 Equivocal 36.0 - 43.9 Positive >43.9 6 Negative < 9.0 Equivocal 9.0 - 10.9 Positive >10.9 7 Negative <18.0 Equivocal 18.0 - 21.9 Positive >21.9 8 Negative <18.0 Equivocal 18.0 - 21.9 Positive >21.9 9 Effective March 04, 2019 the reference interval for C-Reactive Protein, Quant, will be changing to: Age Male Female 0 - 30 days Not Estab. Not Estab. 1 month - 17 years 0 - 7 0 - 9 >17 years 0 - 10 0 - 10 10 Negative <36.0 Equivocal 36.0 - 43.9 Positive >43.9 11 Negative < 9.0 Equivocal 9.0 - 10.9 Positive >10.9 12 Negative <18.0 Equivocal 18.0 - 21.9 Positive >21.9 13 Negative <18.0 Equivocal 18.0 - 21.9 Positive >21.9 14 Effective March 04, 2019 the reference interval for C-Reactive Protein, Quant, will be changing to: Age Male Female 0 - 30 days Not Estab. Not Estab. 1 month - 17 years 0 - 7 0 - 9 >17 years 0 - 10 0 - 10 15 Negative <36.0 Equivocal 36.0 - 43.9 Positive >43.9 Procedures Description No Information Available Medical Devices Description No Information Available Encounters Description No Information Available Assessments Date Code Description Provider 04/12/2019 K21.9 Gastro-esophageal reflux disease without Quincy Cross DO esophagitis 04/12/2019 R14.0 Abdominal distension (gaseous) Quincy Cross DO Plan of Treatment Future Appointment(s):05/17/2019 12:00 pm - Quincy Cross DO at [facility]04/12/2019 - Quincy Cross DOK21.9 Gastro-esophageal reflux disease without [id number] Abdominal distension (gaseous) Functional Status Description No Information Available Mental Status Description No Information Available Referrals Description No Information Available
--- OUTSIDE RECORDS SUMMARY | 2019-07-01 15:07 | XMS REPORT | Continuity of Care Document ---
:1960 External Reference #:[id number] Author Name Aysha Henderson O.D. Address [address] [place] [address] Care Team Providers Name Role Phone Nomi Garcia M.D. - Internal Care Team Information Roll Scale Man Medicine Problems Active Problems Provider Date Insomnia Aysha Henderson O.D. Onset: 01/17/2017 Hypercholesterolemia Aysah Henderson O.D. Onset: 01/17/2017 Chronic back pain Aysha Henderson O.D. Onset: 01/17/2017 Tear film insufficiency Aysha Henderson O.D. Onset: 01/17/2017 Myopia Aysha Henderson O.D. Onset: 01/17/2017 Regular astigmatism Aysha Henderson O.D. Onset: 01/17/2017 Presbyopia Aysha Henderson O.D. Onset: 06/05/2019 Social History Type Date Description Comments Sex Unknown ETOH Use Rarely consumes alcohol Tobacco Use Start: Unknown Patient has never smoked Recreational Drug Use Denies Drug Use Smoking Status Reviewed: 06/05/19 Patient has never smoked Allergies, Adverse Reactions, Alerts Description No Known Drug Allergies Medications Active Medications SIG Qnty Indications Ordering Provider Date Artificial Tears as needed Aysha Henderson O.D. 01/16/2017 0.2-0.2-1% Solution Pravastatin Sodium Nomi Garcia M.D. 80mg Tablets Zolpidem Tartrate Unknown 5mg Tablets Hydrocodone-Acetaminophen Unknown 5-325mg Tablets Multi Vitamin Daily Unknown Tablets Immunizations Description No Information Available Vital Signs Description No Information Available Results Description No Information Available Procedures Description No Information Available Medical Devices Description No Information Available Encounters Description No Information Available Assessments Date Code Description Provider 06/05/2019 H04.123 Dry eye syndrome of bilateral lacrimal glands Aysha Henderson O.D. 06/05/2019 H52.13 Myopia, bilateral Aysha LazarKassy Henderson O.D. 06/05/2019 H52.4 Presbyopia Aysha Henderson O.D. 06/05/2019 H52.223 Regular astigmatism, bilateral Aysha Henderson O.D. Plan of Treatment 06/05/2019 - Aysha Henderson O.D.H04.123 Dry eye syndrome of bilateral lacrimal glandsComments:Both of your eyes appear to be dry. Use artificial tears as directed. You can use the tears more often if you are reading a book or are on the computer, as we tend to blink less, making our eyes dry out more.[facility] offers a few items in our optical department to help alleviate dry eye symptoms.Follow up:2 YEARS You can expect to have your eyes dilated at your next visit. If Dr. Henderson orders any additional testing, it may require extra time. We recommend that you bring sunglasses, as dilation drops often make you light sensitive until they wear off. We always recommend you bring someone to drive youMediguse if you are uncomfortable driving with your eyes dilated. If you have any questions before your next visit, feel free to call our office at .H52.13 Myopia, bilateralComments:Smoking can increase the risk of developing or worsening any eye related disease, as well as affect your overall health. If you are a smoker, we strongly recommend that you quit.If you are not a smoker, we strongly recommend that you do not start. You have Myopia, or near sightedness. I have given you a prescription for glasses.H52.4 PresbyopiaComments:You have presbyopia. This is when the lens in your eye loses the ability to change focus, and happens as we age. A pair of reading glasses will help you see up close.H52.223 Regular astigmatism, bilateralComments:Astigmatism is a common vision condition that happens when a person's cornea is not symmetrical. Dr. Santiago has given you a prescription to correct for this. Functional Status Description No Information Available Mental Status Description No Information Available Referrals Description No Information Available
--- OUTSIDE RECORDS SUMMARY | 2019-07-01 15:07 | XMS REPORT | Continuity of Care Document ---
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 TENDER 05/17/[address] quevedo, no other meds or food for 20-30 mins Immunizations Description No Information Available Vital Signs Date Vital Result Comment 04/12/2019 2:33pm Height 67.5 inches 5'7.50" Weight 200.00 lb BP Systolic 123 mmHg BP Diastolic 73 mmHg Heart Rate 66 /min BMI (Body Mass Index) 30.9 kg/m2 Results Test Date Facility Test Result H/L Range Note Laboratory test 05/17/2019 [facility] Clotest SEE RESULT 1, 2 finding BELOW Laboratory test 05/16/2019 [facility] Surgical SEE RESULT 3, 4 finding Pathology BELOW Xray 03/20/2019 [facility] Radiology Chest PA & Lat <pending> 2VWS Ua Microscopic(!) 02/27/2019 [facility] Ua WBC <pending> Ua RBC <pending> Ua Epithelial Cells <pending> [...] Auto CNT <pending> MPV <pending> Lymph% <pending> [place]% <pending> Neutrophil % <pending> Absolute Lymphocytes <pending> [...] Cells % 0.0 1 Urinalysis Profile 02/27/2019 N2N/CCD Import Urine Color Yellow Urine Appearance Clear Urine Specific [place] 1.004 1 Low 1.01-1.03 Urine pH 7.0 1 5-9 Urine Urobilinogen Negative Urine Ketones Negative Urine Protein Negative Urine Leukocytes Negative Urine Blood Negative Urine Nitrite Negative Urine Bilirubin Negative Urine Glucose Negative Comp Metabolic Panel 02/27/2019 N2N/CCD Import Sodium 142 mmol/L 135- 145 Potassium [...] Egfr Non- 111.0 1 Egfr 134.3 1 5 Lab Results 02/27/2019 N2N/CCD Import LDH 161 U/L 140-271 Xray 02/27/2019 [facility] Radiology Chest PA & Lat <pending> 2VWS [...] Import C-Reactive Protein, 74.2 mg/L High 0-4.9 6, 7 Quant Interpretation: See Comment: 8 Ebv Ab Vca, IgM <36.0 U/mL 0-35.9 9 Ebv Early Antigen Ab, IgG <9.0 U/mL 0-8.9 10 Ebv Ab Vca, IgG <18.0 U/mL 0-17.9 11 Ebv Nuclear Antigen Ab, IgG <18.0 U/mL 0-17.9 12 Lab Results 02/22/2019 N2N/CCD Import Interpretation: See Comment: 13 Ebv Ab Vca, IgM <36.0 U/mL 0-35.9 14 Ebv Early Antigen Ab, IgG <9.0 U/mL 0-8.9 15 Ebv Ab Vca, IgG <18.0 U/mL 0-17.9 16 Ebv Nuclear Antigen Ab, IgG <18.0 U/mL 0-17.9 17 CMV Quant Dna PCR 02/22/2019 N2N/CCD Import CMV Quant Dna PCR Negative Iu/ ml 18 Plasma (Plasma) log10 CMV Qn Dna Pl TNP fpf12NI/mL 19 1 [id number] 2 SEE RESULT BELOW Name: CELIA BARKER : [address]: Quincy Cross DO Acct: [id number] Unit: [id number] AGE: 59 Location: [facility] Re05/17/19 SEX: M Status: DEP REF SPEC: [id number] JOANA: 05/17/19-12[address] [facility] [address]: Quincy Cross DO REQ: [id number] RECD: 05/17/19 STATUS: DASHA ECHAVARRIA DR: Nomi Garcia MD _ SOURCE: GAS ANTRUM SPDESC: ORDERED: Clotest COMMENTS: [id number] Procedure Result Reported Site Clotest Final 05/18/19723 ML Clotest Negative * ML - Main Lab . END OF REPORT DEPARTMENT OF PATHOLOGY, [address] [place] [address] Kuldeep Starr M.D. Director [facility] # [id number] SEE RESULT BELOW Name: CELIA BARKER : [address]: Quincy Cross DO Acct: [id number] Unit: [id number] AGE: 59 Location: [facility] Re05/17/19 SEX: M Status: DEP REF SPEC: [id number] JOANA: 05/17/19-1244 [facility] [address]: Quincy Cross DO REQ: [id number] RECD: 05/17/19-1552 STATUS: DASHA ECHAVARRIA DR: Nomi Garcia MD _ SOURCE: GAS ANTRUM SPDESC: ORDERED: Clotest COMMENTS: [id number] Procedure Result Reported Site Clotest Final 05/18/19- 723 ML Clotest Negative * - Main Lab . END OF REPORT DEPARTMENT OF PATHOLOGY, [address] [place] [address] Kuldeep Starr M.D. Director [facility] # [id number] 3 [id number] SEE RESULT BELOW Name: CELIA BARKER : [address]: Quincy Cross DO Acct: [id number] Unit: [id number] AGE: 59 Location: [facility] Re05/17/19 SEX: M Status: DEP REF SPEC: [id number] JOANA: 05/16/19-[address]: Quincy Cross DO REQ: [id number] RECD: 05/17/19-1610 STATUS: JEZ ECHAVARRIA DR: Nomi Garcia MD _ ORDERED: LEVEL 4/4 COMMENTS: [id number] FINAL DIAGNOSIS 1. Duodenum, biopsy: -- Benign small intestinal mucosa with no significant pathologic abnormalities. -- No evidence of villous blunting or increased intraepithelial lymphocytes. 2. Stomach, pyloric channel, biopsy: -- Antral-type gastric mucosa with mild chronic gastritis and reactive chemical gastropathy. -- No evidence of Helicobacter organisms. 3. Stomach, antrum, biopsy: -- Antral and body-type gastric mucosa with mild chronic gastritis. -- No evidence of Helicobacter organisms. 4. Esophagus, distal, biopsy: -- Benign squamous and columnar-type mucosa with chronic inflammation. -- Intestinal metaplasia is absent. -- Dysplasia is absent. POST-OPERATIVE DIAGNOSIS EGD: esophagus ??? mild z line variable biopsy; gastric ??? gastritis; gastropathy; antrum; biopsy; TERRY test; biopsy antrum; pylorus ??? narrow; duodenum ??? mild inflammation biopsy GROSS DESCRIPTION 1. The specimen is received in formalin labeled, Duodenal Biopsy, and consists of two simpson-pink irregular soft tissue fragments measuring 0.2 x 0.2 x 0.2 cm and 0.3 x 0.3 x 0.2 cm which are submitted entirely in one cassette. CONTINUED ON NEXT PAGE DEPARTMENT OF PATHOLOGY, [address] [place] [address] Kuldeep Starr M.D. Director [facility] # [id number] RUN DATE: 05/21/19 [facility] LAB LIVE PAGE 2 Patient: CELIA BARKER [id number] (Continued) GROSS DESCRIPTION (Continued) 2. The specimen is received in formalin labeled, Pyloric Channel Biopsy, and consists of two simpson-pink irregular soft tissue fragments measuring 0.5 by up to 0.3 x 0.1 cm and 0.7 x 0.2 x 0.1 cm which are submitted entirely in one cassette. 3. The specimen is received in formalin labeled, Gastric Antrum Gastritis Biopsy, and consists of three simpson-pink irregular soft tissue fragments aggregating 0.5 x 0.4 x 0.1 cm which are submitted entirely in one cassette. 4. The specimen is received in formalin labeled, Distal Esophagus Biopsy, and consists of two white-pink irregular soft tissue fragments measuring 0.3 x 0.1 x 0.1 cm and 0.4 x 0.2 x 0.2 cm which are submitted entirely in one cassette. Signed by and Reported on: Humaira Armstrong MD 05/21/19 1251 END OF REPORT DEPARTMENT OF PATHOLOGY, [address] [place] [address] Kuldeep Starr M.D. Director [facility] # [id number] SEE RESULT BELOW Name: CELIA BARKER : [address]: Quincy Cross DO Acct: [id number] Unit: [id number] AGE: 59 Location: [facility] Re05/17/19 SEX: M Status: DEP REF SPEC: [id number] JOANA: 05/16/19-[address]: Quincy Cross DO REQ: [id number] RECD: 05/17/19 STATUS: JEZ ECHAVARRIA DR: Nomi Garcia MD _ ORDERED: LEVEL 4/4 COMMENTS: [id number] FINAL DIAGNOSIS 1. Duodenum, biopsy: -- Benign small intestinal mucosa with no significant pathologic abnormalities. -- No evidence of villous blunting or increased intraepithelial lymphocytes. 2. Stomach, pyloric channel, biopsy: -- Antral-type gastric mucosa with mild chronic gastritis and reactive chemical gastropathy. -- No evidence of Helicobacter organisms. 3. Stomach, antrum, biopsy: -- Antral and body-type gastric mucosa with mild chronic gastritis. -- No evidence of Helicobacter organisms. 4. Esophagus, distal, biopsy: -- Benign squamous and columnar-type mucosa with chronic inflammation. -- Intestinal metaplasia is absent. -- Dysplasia is absent. POST-OPERATIVE DIAGNOSIS EGD: esophagus ??? mild z line variable biopsy; gastric ??? gastritis; gastropathy; antrum; biopsy; TERRY test; biopsy antrum; pylorus ??? narrow; duodenum ??? mild inflammation biopsy GROSS DESCRIPTION 1. The specimen is received in formalin labeled, Duodenal Biopsy, and consists of two simpson-pink irregular soft tissue fragments measuring 0.2 x 0.2 x 0.2 cm and 0.3 x 0.3 x 0.2 cm which are submitted entirely in one cassette. CONTINUED ON NEXT PAGE DEPARTMENT OF PATHOLOGY, [address] [place] [address] Kuldeep Starr M.D. Director [facility] # [id number] RUN DATE: 05/21/19 [facility] LAB LIVE PAGE 2 Patient: CELIA BARKER [id number] (Continued) GROSS DESCRIPTION (Continued) 2. The specimen is received in formalin labeled, Pyloric Channel Biopsy, and consists of two simpson-pink irregular soft tissue fragments measuring 0.5 by up to 0.3 x 0.1 cm and 0.7 x 0.2 x 0.1 cm which are submitted entirely in one cassette. 3. The specimen is received in formalin labeled, Gastric Antrum Gastritis Biopsy, and consists of three simpson-pink irregular soft tissue fragments aggregating 0.5 x 0.4 x 0.1 cm which are submitted entirely in one cassette. 4. The specimen is received in formalin labeled, Distal Esophagus Biopsy, and consists of two white-pink irregular soft tissue fragments measuring 0.3 x 0.1 x 0.1 cm and 0.4 x 0.2 x 0.2 cm which are submitted entirely in one cassette. Signed by and Reported on: Humaira Armstrong MD 05/21/19 1251 END OF REPORT DEPARTMENT OF PATHOLOGY, [address] [place] [address] Kuldeep Starr M.D. Director [facility] # [id number] 5 Because ethnic data is not always readily [...] 15-29 5 Kidney failure <15 (or dialysis) 6 FROZEN 7 Effective March 04, 2019 the reference interval for C-Reactive Protein, Quant, will be changing to: Age Male Female 0 - 30 days Not Estab. Not Estab. 1 month - 17 years 0 - 7 0 - 9 >17 years 0 - 10 0 - 10 8 Effective March 04, 2019 the reference interval for C-Reactive Protein, Quant, will be changing to: Age Male Female 0 - 30 days Not Estab. Not Estab. 1 month - 17 years 0 - 7 0 - 9 >17 years 0 - 10 0 - 10 9 Negative <36.0 Equivocal 36.0 - 43.9 Positive >43.9 10 Negative < 9.0 Equivocal 9.0 - 10.9 Positive >10.9 11 Negative <18.0 Equivocal 18.0 - 21.9 Positive >21.9 12 Negative <18.0 Equivocal 18.0 - 21.9 Positive >21.9 13 Effective March 04, 2019 the reference interval for C-Reactive Protein, Quant, will be changing to: Age Male Female 0 - 30 days Not Estab. Not Estab. 1 month - 17 years 0 - 7 0 - 9 >17 years 0 - 10 0 - 10 14 Negative <36.0 Equivocal 36.0 - 43.9 Positive >43.9 15 Negative < 9.0 Equivocal 9.0 - 10.9 Positive >10.9 16 Negative <18.0 Equivocal 18.0 - 21.9 Positive >21.9 17 Negative <18.0 Equivocal 18.0 - 21.9 Positive >21.9 18 Effective March 04, 2019 the reference interval for C-Reactive Protein, Quant, will be changing to: Age Male Female 0 - 30 days Not Estab. Not Estab. 1 month - 17 years 0 - 7 0 - 9 >17 years 0 - 10 0 - 10 19 Negative <36.0 Equivocal 36.0 - 43.9 Positive >43.9 Procedures Description No Information Available Medical Devices Description No Information Available Encounters Type Date Location Provider Dx Diagnosis Office Visit 04/12/2019 Gastroenterology Quincy Cross K21.9 Gastro- esophageal 2:45p [facility] DO reflux disease without esophagitis R14.0 Abdominal distension (gaseous) Assessments Date Code Description Provider 04/12/2019 K21.9 Gastro-esophageal reflux disease without Quincy Cross DO esophagitis 04/12/2019 R14.0 Abdominal distension (gaseous) Quincy Cross DO Plan of Treatment No Information Available Functional Status Description No Information Available Mental Status Description No Information Available Referrals Description No Information Available
--- OUTSIDE RECORDS SUMMARY | 2019-07-01 15:07 | XMS REPORT | Continuity of Care Document ---
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 not to exceed 7 days of use Omeprazole 1 by mouth 90caps K21.0 [facility], 12/05/2018 - 40mg daily on empty Humaira, DRYING ROOM ATTENDANT 05/17/[address] quevedo, no other meds or food for 20-30 mins Immunizations Description No Information Available Vital Signs Date Vital Result Comment 04/12/2019 2:33pm Height 67.5 inches 5'7.50" Weight 200.00 lb BP Systolic 123 mmHg BP Diastolic 73 mmHg Heart Rate 66 /min BMI (Body Mass Index) 30.9 kg/m2 Results Test Date Facility Test Result H/L Range Note Laboratory test 05/17/2019 [facility] Clotest SEE RESULT 1, 2 finding BELOW Laboratory test 05/16/2019 [facility] Surgical SEE RESULT 3, 4 finding Pathology BELOW Xray 03/20/2019 [facility] Radiology Chest PA & Lat <pending> 2VWS [...] Auto CNT <pending> MPV <pending> Lymph% <pending> [place]% <pending> Neutrophil % <pending> Absolute Lymphocytes <pending> [...] Color Yellow Urine Appearance Clear Urine Specific [place] 1.004 1 Low 1.01-1.03 Urine pH 7.0 [...] Import LDH 161 U/L 140-271 Xray 02/27/2019 [facility] Radiology Chest PA & Lat <pending> 2VWS [...] (Plasma) log10 CMV Qn Dna Pl TNP tlw21CG/mL 19 1 [id number] 2 SEE RESULT BELOW Name: CELIA BARKER : [address]: Quincy Cross DO Acct: [id number] Unit: [id number] AGE: 59 Location: [facility] Re05/17/19 SEX: M Status: DEP REF SPEC: [id number] JOANA: 05/17/19-[address] [facility] [address]: Quincy Cross DO REQ: [id number] RECD: 05/17/19 STATUS: DASHA ECHAVARRIA DR: Nomi Garcia MD _ SOURCE: GAS ANTRUM SPDESC: ORDERED: Clotest COMMENTS: [id number] Procedure Result Reported Site Clotest Final 05/18/19723 ML Clotest Negative * ML - Main Lab . END OF REPORT DEPARTMENT OF PATHOLOGY, [address] [place] [address] Kuldeep Starr M.D. Director [facility] # [id number] SEE RESULT BELOW Name: CELIA BARKER : [address]: Quincy Cross DO Acct: [id number] Unit: [id number] AGE: 59 Location: [facility] Re05/17/19 SEX: M Status: DEP REF SPEC: [id number] JOANA: 05/17/19-[address] [facility] [address]: Quincy Cross DO REQ: [id number] RECD: 05/17/19-1552 STATUS: DASHA ECHAVARRIA DR: Nomi Garcia MD _ SOURCE: GAS ANTRUM SPDESC: ORDERED: Clotest COMMENTS: [id number] Procedure Result Reported Site Clotest Final 05/18/19- 723 ML Clotest Negative * - Main Lab . END OF REPORT DEPARTMENT OF PATHOLOGY, [address] [place] [address] Kuldeep Starr M.D. Director [facility] # [id number] SEE RESULT BELOW Name: CELIA BARKER : [address]: Quincy Cross DO Acct: [id number] Unit: [id number] AGE: 59 Location: [facility] Re05/17/19 SEX: M Status: DEP REF SPEC: [id number] JOANA: 05/16/19-[address]: Quincy Cross DO REQ: [id number] RECD: 05/17/19-1610 STATUS: JEZ ECHAVARRIA DR: Nomi Garcia MD _ ORDERED: LEVEL 4/4 COMMENTS: [id number] FINAL DIAGNOSIS 1. Duodenum, biopsy: -- Benign [...] CONTINUED ON NEXT PAGE DEPARTMENT OF PATHOLOGY, [address] [place] [address] Kuldeep Starr M.D. Director [facility] # [id number] RUN DATE: 05/21/19 [facility] LAB LIVE PAGE 2 Patient: CELIA BARKER [id number] (Continued) GROSS DESCRIPTION (Continued) 2. The specimen [...] 1251 END OF REPORT DEPARTMENT OF PATHOLOGY, [address] [place] [address] Kuldeep Starr M.D. Director [facility] # [id number] SEE RESULT BELOW Name: CELIA BARKER : [address]: Quincy Cross DO Acct: [id number] Unit: [id number] AGE: 59 Location: [facility] Re05/17/19 SEX: M Status: DEP REF SPEC: [id number] JOANA: 05/16/19-[address]: Quincy Cross DO REQ: [id number] RECD: 05/17/19 STATUS: JEZ ECHAVARRIA DR: Nomi Garcia MD _ ORDERED: LEVEL 4/4 COMMENTS: [id number] FINAL DIAGNOSIS 1. Duodenum, biopsy: -- Benign [...] CONTINUED ON NEXT PAGE DEPARTMENT OF PATHOLOGY, [address] [place] [address] Kuldeep Starr M.D. Director [facility] # [id number] RUN DATE: 05/21/19 [facility] LAB LIVE PAGE 2 Patient: CELIA BARKER [id number] (Continued) GROSS DESCRIPTION (Continued) 2. The specimen [...] 1251 END OF REPORT DEPARTMENT OF PATHOLOGY, [address] [place] [address] Kuldeep Starr M.D. Director [facility] # [id number] 5 Because ethnic data is not always [...] Gastroenterology Quincy Cross K21.9 Gastro- esophageal 2:45p [facility] DO reflux disease without esophagitis R14.0 Abdominal distension (gaseous) Assessments Date Code Description Provider 04/12/2019 K21.9 Gastro-esophageal reflux disease without Quincy Cross DO esophagitis 04/12/2019 R14.0 Abdominal distension (gaseous) Quincy Cross DO Plan of Treatment No Information Available Functional Status Description No Information Available Mental Status Description No Information Available Referrals Description No Information Available
[2019-07-01 15:23] VITALS: BP 145/77
[2019-07-01] MEDS ORDERED: Acetaminophen TAB* 325 MG PO ONE (15:26)
--- NOTE | 2019-07-01 15:30 | UC ---
FLU HPI - HPI Summary HPI Summary: Didn't feel well this morning and then gradually progressed to body aches, fever , chills. Boss diagnosed with flu and treated last week. Pt has taken no antipyretic. - History of Current Complaint Chief Complaint: UCRespiratory Stated Complaint: COUGH, AND FEVER Time Seen by Provider: 07/01/19 15:22 Hx Obtained From: Patient Onset/Duration: Gradual Onset Severity Currently: Moderate Severity Initially: Mild Pain Intensity: 6 Associated Signs & Symptoms: Positive: Fever, Myalgia - Allergy/Home Medications Allergies/Adverse Reactions: Allergies Allergy/AdvReac Type Severity Reaction Status Date / Time No Known Allergies Allergy Verified 07/01/19 15:23 Home Medications: Home Medications Omeprazole CAP(NF) [PriLOSEC CAP(NF)] 10 mg PO DAILY 07/01/19 [History Confirmed 07/01/19] PMH/Surg Hx/FS Hx/Imm Hx Previously Healthy: Yes Endocrine History: Dyslipidemia - Surgical History Surgical History: Yes Surgery Procedure, Year, and Place: HERNIA REPAIR, TONSILLECTOMY, CERVICAL DISCECTOMY - Family History Known Family History: Positive: None, Cardiac Disease - [place], Other - [place] Negative: Hypertension, Diabetes - Social History Occupation: Employed Full-time Lives: With Family Alcohol Use: Rare Substance Use Type: None Smoking Status (MU): Never Smoked Tobacco - Immunization History Most Recent Influenza Vaccination: fall 2012 Review of Systems All Other Systems Reviewed And Are Negative: Yes Constitutional: Positive: Fever, Chills, Fatigue ENT: Positive: Nasal Discharge Musculoskeletal: Positive: Myalgia Is Patient Immunocompromised?: No Physical Exam Triage Information Reviewed: Yes Appearance: Well-Appearing, No Pain Distress, Well-Nourished Vital Signs: Initial Vital Signs Temp 102.7 F 07/01/19 15:13 Pulse 118 07/01/19 15:13 Resp 22 07/01/19 15:13 BP 145/77 07/01/19 15:13 Pulse Ox 97 07/01/19 15:13 Vital Signs Reviewed: Yes Eyes: Positive: Conjunctiva Clear ENT: Positive: Hearing grossly normal, Pharynx normal, TMs normal, Uvula midline Neck: Positive: Supple, Nontender, No Lymphadenopathy Respiratory: Positive: Lungs clear, Normal breath sounds, No respiratory distress, No accessory muscle use Cardiovascular: Positive: No Murmur, Pulses Normal, Brisk Capillary Refill, Tachycardia Musculoskeletal Exam: Normal Neurological Exam: Normal Psychological Exam: Normal Skin Exam: Normal Flu Course/Dx - Course Course Of Treatment: CXR:Indication: Fever, flu. 2 views of the chest demonstrates elevated left hemidiaphragm with left basilar atelectasis. Right lung field is clear. Patient is status post fusion of the cervical spine. IMPRESSION: Elevated left hemidiaphragm. No active disease is noted. Rapid Flu test:Negative Although Flu test and CXR were negative, the patient fits the picture of Influenza and clinical pneumonia. Pt has been on several courses of Doxycycline over the past year for pneumonia and ear infections and states it doesn't usually work for him. He states Levaquin usually has had to be given. After discussion with Dr. Moore, I am going to treat him for both flu and pneumonia. He is to go to the ER for any worsening symptoms. - Differential Dx/Diagnosis Provider Diagnosis: Flu-like symptoms, Pneumonia Discharge ED - Sign-Out/Discharge Documenting (check all that apply): Patient Departure All imaging exams completed and their final reports reviewed: Yes - Discharge Plan Condition: Fair Disposition: HOME Prescriptions: Levofloxacin TAB* [Levaquin TAB*] 750 mg PO DAILY 7 Days #7 tab Oseltamivir CAP* [Tamiflu CAP*] 75 mg PO BID 5 Days #10 cap Patient Education Materials: Influenza (DC), Community Acquired Pneumonia (DC) Referrals: Nomi Garcia MD [Primary Care Provider] - Additional Instructions: Increase fluids, rest, Tylenol every 4 hours for fever and may alternate with Motrin every 8 hours however the Motrin may bother your GERD. Definite follow up with your doctor if no improvement in 3-4 days. Go to the ER for any worsening symptoms, shortness of breath, difficulty breathing. - Billing Disposition and Condition Condition: FAIR Disposition: Home
[2019-07-01 15:44] LABS: Influenza A Molecular NEGATIVE (Negative); Influenza B Molecular NEGATIVE (Negative)
== END 2019-07-01 16:18 | disposition home or self-care (01) ==
LOC: UCEAST 15:02
DX: J18.9 Pneumonia, unspecified organism (principal); R50.9 Fever, unspecified; R51 Headache
CPT/HCPCS: 71046; 99212; A9270-GY; G0463

== ENCOUNTER 2019-09-24 09:51 | Emergency (ER) | payer BC ==
--- OUTSIDE RECORDS SUMMARY | 2019-09-24 10:17 | XMS REPORT | Continuity of Care Document ---
:1960 External Reference #:[id number] Author Name Quincy Cross DO Address [address] [place] [id number] Care Team Providers Name Role Phone Nomi Garcia MD - Family Medicine Care Team Information Billing Department Supervisor Problems Description No Information Available Social History Type Date Description Comments Sex Unknown Tobacco Use Start: Unknown Patient has never smoked Smoking Status Reviewed: 04/12/19 Patient has never smoked Allergies, Adverse Reactions, Alerts Description No Known Drug Allergies Medications Active Medications SIG Qnty Indications Ordering Provider Date Omeprazole Take 1 Capsule 90caps Quincy Cross DO 05/17/2019 40mg By Mouth Daily Capsules DR In The Morning 30 Minutes Before A Meal Hydrocodone-Acetamino 1 by mouth every 40tabs Nomi [...] PO Q am Unknown Allergyliquid-Gels 25mg Capsules Immunizations Description No Information Available Vital Signs Date Vital Result Comment 04/12/2019 2:33pm Height 67.5 inches 5'7.50" Weight 200.00 lb BP Systolic 123 mmHg BP Diastolic 73 mmHg Heart Rate 66 /min BMI (Body Mass Index) 30.9 kg/m2 Results Test Acquired Date Facility Test Result H/L Range Note [place] 08[place]23/[place] [facility] [place] SEE RESULT 1, 2 finding Pathology BELOW Laboratory test 05/17/2019 [facility] [place]ot[place] SEE RESULT 3, 4 finding BELOW Laboratory test 05/16/2019 [facility] [place] SEE RESULT 5, 6 finding Pathology BELOW Xray 03/20/2019 [facility] [place] Chest PA & Lat <pending> 2VWS 1 [id number] 2 SEE RESULT BELOW Name: CELIA BARKER : [address]: Quincy Cross DO Acct: [id number] Unit: [id number] AGE: 59 Location: [facility] Re08/23/19 SEX: M Status: DEP REF SPEC: [id number] JOANA: 08/23/19-[address] [facility] [address]: Quincy Cross DO REQ: [id number] RECD: 08/23/19 STATUS: JEZ ECHAVARRIA DR: Nomi Garcia MD _ ORDERED: LEVEL 4 COMMENTS: [id number] FINAL DIAGNOSIS Pyloric channel, biopsy: -- Gastric antral-type mucosa with patchy chronic inflammation. -- No active inflammation or Helicobacter pylori-like organisms are identified. See comment. Comment: An immunohistochemical stain for Helicobacter pylori-like organisms is pending and will be reported in an addendum. CLINICAL HISTORY Pyloric stenosis POST-OPERATIVE DIAGNOSIS EGD: esophagus - mild gastroesophageal junction; gastric - 1 to 2 cm hiatal hernia; pyloric stenosis; unable to pass adult; duodenum - normal; balloon 10-12 GROSS DESCRIPTION The specimen is received in formalin labeled, Biopsy Pyloric Channel, and consists of two simpson-pink irregular soft tissue fragments measuring 0.4 x 0.2 x 0.2 cm and 0.5 by up to 0.3 x 0.2 cm which are submitted entirely in one cassette. CONTINUED ON NEXT PAGE DEPARTMENT OF PATHOLOGY, [facility] [place] [address] Kuldeep Starr M.D. Director [facility] # [id number] Signed by and Reported on: Kuldeep Starr MD 06/06 1258 END OF REPORT DEPARTMENT OF PATHOLOGY, [facility] [place], [place] [address] Kuldeep Starr M.D. Director [facility] # [id number] SEE RESULT BELOW Name: CELIA BARKER : [address]: Quincy Cross DO Acct: [id number] Unit: [id number] AGE: 59 Location: [facility] Re08/23/19 SEX: M Status: DEP REF SPEC: [id number] JOANA: 08/23/19-[address] [facility] [address]: Quincy Cross DO REQ: [id number] RECD: 08/23/19 STATUS: JEZ ECHAVARRIA DR: Nomi Garcia MD _ ORDERED: LEVEL 4 COMMENTS: [id number] FINAL DIAGNOSIS Pyloric channel, biopsy: -- Gastric antral-type mucosa with patchy chronic inflammation. -- No active inflammation or Helicobacter pylori-like organisms are identified. See comment. Comment: An immunohistochemical stain for Helicobacter pylori-like organisms is pending and will be reported in an addendum. CLINICAL HISTORY Pyloric stenosis POST-OPERATIVE DIAGNOSIS EGD: esophagus - mild gastroesophageal junction; gastric - 1 to 2 cm hiatal hernia; pyloric stenosis; unable to pass adult; duodenum - normal; balloon 10-12 GROSS DESCRIPTION The specimen is received in formalin labeled, Biopsy Pyloric Channel, and consists of two simpson-pink irregular soft tissue fragments measuring 0.4 x 0.2 x 0.2 cm and 0.5 by up to 0.3 x 0.2 cm which are submitted entirely in one cassette. CONTINUED ON NEXT PAGE DEPARTMENT OF PATHOLOGY, [address] [place] [address] Kuldeep Starr M.D. Director [facility] # [id number] Signed by and Reported on: Kuldeep Starr MD 06/06 6396 END OF REPORT DEPARTMENT OF PATHOLOGY, [address] [place] [address] Kuldeep Starr M.D. Director [facility] # [id number] SEE RESULT BELOW Name: CELIA BARKER : [address]: Quincy Cross DO Acct: [id number] Unit: [id number] AGE: 59 Location: [facility] Re08/23/19 SEX: M Status: DEP REF SPEC: [id number] JOANA: 08/23/190671 SUBM DR: Quincy Cross DO REQ: [id number] RECD: 08/23/19 STATUS: JEZ ECHAVARRIA DR: Nomi Garcia MD _ ORDERED: LEVEL 4 COMMENTS: [id number] FINAL DIAGNOSIS Pyloric channel, biopsy: -- Gastric antral-type mucosa with patchy chronic inflammation. -- No active inflammation or Helicobacter pylori-like organisms are identified. See comment. Comment: An immunohistochemical stain for Helicobacter pylori-like organisms is pending and will be reported in an addendum. CLINICAL HISTORY Pyloric stenosis POST-OPERATIVE DIAGNOSIS EGD: esophagus - mild gastroesophageal junction; gastric - 1 to 2 cm hiatal hernia; pyloric stenosis; unable to pass adult; duodenum - normal; balloon 10-12 GROSS DESCRIPTION The specimen is received in formalin labeled, Biopsy Pyloric Channel, and consists of two simpson-pink irregular soft tissue fragments measuring 0.4 x 0.2 x 0.2 cm and 0.5 by up to 0.3 x 0.2 cm which are submitted entirely in one cassette. CONTINUED ON NEXT PAGE DEPARTMENT OF PATHOLOGY, [address] [place] [address] Kuldeep Starr M.D. Director [facility] # [id number] Signed by and Reported on: Kuldeep Starr MD 06/06 1258 END OF REPORT DEPARTMENT OF PATHOLOGY, [address] [place] [address] Kuldeep Starr M.D. Director [facility] # [id number] SEE RESULT BELOW Name: CELIA BARKER : [address]: Quincy Cross DO Acct: [id number] Unit: [id number] AGE: 59 Location: [facility] Re08/23/19 SEX: M Status: DEP REF SPEC: [id number] JOANA: 08/23/191133 [facility] DR: Quincy Cross DO REQ: [id number] RECD: 08/23/19 STATUS: JEZ ECHAVARRIA DR: Nomi Garcia MD _ ORDERED: LEVEL 4, IMMUNO-FIRST COMMENTS: [id number] ADDENDUM An H. pylori immunohistochemical stain, with appropriately reacting controls , was performed and is negative for Helicobacter organisms. Addendum Signed (signature on file) Humaira Armstrong MD 07/06 1015 FINAL DIAGNOSIS Pyloric channel, biopsy: -- Gastric antral-type mucosa with patchy chronic inflammation. -- No active inflammation or Helicobacter pylori-like organisms are identified. See comment. Comment: An immunohistochemical stain for Helicobacter pylori-like organisms is pending and will be reported in an addendum. CLINICAL HISTORY Pyloric stenosis CONTINUED ON NEXT PAGE DEPARTMENT OF PATHOLOGY, [address] [place] [address] Kuldeep Starr M.D. Director [facility] # [id number] POST-OPERATIVE DIAGNOSIS EGD: esophagus - mild gastroesophageal junction; gastric - 1 to 2 cm hiatal hernia; pyloric stenosis; unable to pass adult; duodenum - normal; balloon 10-12 GROSS DESCRIPTION The specimen is received in formalin labeled, Biopsy Pyloric Channel, and consists of two simpson-pink irregular soft tissue fragments measuring 0.4 x 0.2 x 0.2 cm and 0.5 by up to 0.3 x 0.2 cm which are submitted entirely in one cassette. Signed by and Reported on: Kuldeep Starr MD 06/06 1258 END OF REPORT DEPARTMENT OF PATHOLOGY, [address] [place] [address] Kuldeep Starr M.D. Director [facility] # [id number] SEE RESULT BELOW Name: CELIA BARKER : [address]: Quincy Cross DO Acct: [id number] Unit: [id number] AGE: 59 Location: [facility] Re08/23/19 SEX: M Status: DEP REF SPEC: [id number] JOANA: 08/23/19-[address]: Quincy Cross DO REQ: [id number] RECD: 08/23/19 STATUS: JEZ ECHAVARRIA DR: Nomi Garcia MD _ ORDERED: LEVEL 4, IMMUNO-FIRST COMMENTS: [id number] ADDENDUM An H. pylori immunohistochemical stain, with appropriately reacting controls , was performed and is negative for Helicobacter organisms. Addendum Signed (signature on file) Humaira Armstrong MD 07/06 1015 FINAL DIAGNOSIS Pyloric channel, biopsy: -- Gastric antral-type mucosa with patchy chronic inflammation. -- No active inflammation or Helicobacter pylori-like organisms are identified. See comment. Comment: An immunohistochemical stain for Helicobacter pylori-like organisms is pending and will be reported in an addendum. CLINICAL HISTORY Pyloric stenosis CONTINUED ON NEXT PAGE DEPARTMENT OF PATHOLOGY, [address] [place] [address] Kuldeep Starr M.D. Director [facility] # [id number] POST-OPERATIVE DIAGNOSIS EGD: esophagus - mild gastroesophageal junction; gastric - 1 to 2 cm hiatal hernia; pyloric stenosis; unable to pass adult; duodenum - normal; balloon 10-12 GROSS DESCRIPTION The specimen is received in formalin labeled, Biopsy Pyloric Channel, and consists of two simpson-pink irregular soft tissue fragments measuring 0.4 x 0.2 x 0.2 cm and 0.5 by up to 0.3 x 0.2 cm which are submitted entirely in one cassette. Signed by and Reported on: Kuldeep Starr MD 06/06 1250 END OF REPORT DEPARTMENT OF PATHOLOGY, [address] [place] [address] Kuldeep Starr M.D. Director [facility] # [id number] SEE RESULT BELOW Name: CELIA BARKER : [address]: Quincy Cross DO Acct: [id number] Unit: [id number] AGE: 59 Location: [facility] Re08/23/19 SEX: M Status: DEP REF SPEC: [id number] JOANA: 08/23/19-[address] [facility] [address]: Quincy Cross DO REQ: [id number] RECD: 08/23/191600 STATUS: JEZ ECHAVARRIA DR: Nomi Garcia MD _ ORDERED: LEVEL 4, IMMUNO-FIRST COMMENTS: [id number] ADDENDUM An H. pylori immunohistochemical stain, with appropriately reacting controls , was performed and is negative for Helicobacter organisms. Addendum Signed (signature on file) Humaira Armstrong MD 07/06 1015 FINAL DIAGNOSIS Pyloric channel, biopsy: -- Gastric antral-type mucosa with patchy chronic inflammation. -- No active inflammation or Helicobacter pylori-like organisms are identified. See comment. Comment: An immunohistochemical stain for Helicobacter pylori-like organisms is pending and will be reported in an addendum. CLINICAL HISTORY Pyloric stenosis CONTINUED ON NEXT PAGE DEPARTMENT OF PATHOLOGY, [facility] [place], [place] [address] Kuldeep Starr M.D. Director [facility] # [id number] POST-OPERATIVE DIAGNOSIS EGD: esophagus - mild gastroesophageal junction; gastric - 1 to 2 cm hiatal hernia; pyloric stenosis; unable to pass adult; duodenum - normal; balloon 10-12 GROSS DESCRIPTION The specimen is received in formalin labeled, Biopsy Pyloric Channel, and consists of two simpson-pink irregular soft tissue fragments measuring 0.4 x 0.2 x 0.2 cm and 0.5 by up to 0.3 x 0.2 cm which are submitted entirely in one cassette. Signed by and Reported on: Kuldeep Starr MD 06/06 1258 END OF REPORT DEPARTMENT OF PATHOLOGY, [facility] [place] [address] Kuldeep Starr M.D. Director [facility] # [id number] SEE RESULT BELOW Name: CELIA BARKER : [address]: Quincy Cross DO Acct: [id number] Unit: [id number] AGE: 59 Location: [facility] Re08/23/19 SEX: M Status: DEP REF SPEC: [id number] JOANA: 08/23/19-[address] [facility] [address]: Quincy Cross DO REQ: [id number] RECD: 08/23/19 STATUS: JEZ ECHAVARRIA DR: Nomi Garcia MD _ ORDERED: LEVEL 4, IMMUNO-FIRST COMMENTS: [id number] ADDENDUM An H. pylori immunohistochemical stain, with appropriately reacting controls , was performed and is negative for Helicobacter organisms. Addendum Signed (signature on file) Humaira Armstrong MD 07/06 1015 FINAL DIAGNOSIS Pyloric channel, biopsy: -- Gastric antral-type mucosa with patchy chronic inflammation. -- No active inflammation or Helicobacter pylori-like organisms are identified. See comment. Comment: An immunohistochemical stain for Helicobacter pylori-like organisms is pending and will be reported in an addendum. CLINICAL HISTORY Pyloric stenosis CONTINUED ON NEXT PAGE DEPARTMENT OF PATHOLOGY, [facility] [place] [address] Kuldeep Starr M.D. Director [facility] # [id number] POST-OPERATIVE DIAGNOSIS EGD: esophagus - mild gastroesophageal junction; gastric - 1 to 2 cm hiatal hernia; pyloric stenosis; unable to pass adult; duodenum - normal; balloon 10-12 GROSS DESCRIPTION The specimen is received in formalin labeled, Biopsy Pyloric Channel, and consists of two simpson-pink irregular soft tissue fragments measuring 0.4 x 0.2 x 0.2 cm and 0.5 by up to 0.3 x 0.2 cm which are submitted entirely in one cassette. Signed by and Reported on: Kuldeep Starr MD 06/06 1258 END OF REPORT DEPARTMENT OF PATHOLOGY, [facility] [place], [place] [address] Kuldeep Starr M.D. Director [facility] # [id number] SEE RESULT BELOW Name: CELIA BARKER : [address]: Quincy Cross DO Acct: [id number] Unit: [id number] AGE: 59 Location: [facility] Re05/17/19 SEX: M Status: DEP REF SPEC: [id number] JOAAN: 05/17/19-[address] [facility] [address]: Quincy Cross DO REQ: [id number] RECD: 05/17/19-1551 STATUS: DASHA ECHAVARRIA DR: Nomi Garcia MD _ SOURCE: GAS ANTRUM SPDESC: ORDERED: Clotest COMMENTS: [id number] Procedure Result Reported Site Clotest Final 05/18/19- 723 ML Clotest Negative * ML - Main Lab . END OF REPORT DEPARTMENT OF PATHOLOGY, [address] [place] [address] Kuldeep Starr M.D. Director [facility] # [id number] SEE RESULT BELOW Name: CELIA BARKER : [address]: Quincy Cross DO Acct: [id number] Unit: [id number] AGE: 59 Location: [facility] Re05/17/19 SEX: M Status: DEP REF SPEC: [id number] JOANA: 05/17/19-[address] [facility] [address]: Quincy Cross DO REQ: [id number] RECD: 05/17/19737 STATUS: DASHA ECHAVARRIA DR: Nomi Garcia MD _ SOURCE: GAS ANTRUM SPDESC: ORDERED: Clotest COMMENTS: [id number] Procedure Result Reported Site Clotest Final 05/18/19- 723 ML Clotest Negative * ML - Main Lab . END OF REPORT DEPARTMENT OF PATHOLOGY, [address] [place] [address] Kuldeep Starr M.D. Director [facility] # [id number] SEE RESULT BELOW Name: CELIA BARKER : [address]: Quincy Cross DO Acct: [id number] Unit: [id number] AGE: 59 Location: [facility] Re05/17/19 SEX: M Status: DEP REF SPEC: [id number] JOANA: 05/16/19-[address] [facility] [address]: Quincy Cross DO REQ: [id number] RECD: 05/17/19 STATUS: JEZ ECHAVARRIA DR: Nomi Garcia MD _ ORDERED: LEVEL 4/4 COMMENTS: [id number] FINAL DIAGNOSIS 1. Duodenum, biopsy: -- Benign [...] CONTINUED ON NEXT PAGE DEPARTMENT OF PATHOLOGY, [address] [place] [address] Kuldeep Starr M.D. Director [facility] # [id number] RUN DATE: 05/21/19 [facility] LAB LIVE PAGE 2 Patient: CELIA BARKER [id number] (Continued) GROSS DESCRIPTION (Continued) 2. The specimen [...] 1251 END OF REPORT DEPARTMENT OF PATHOLOGY, [address] [place] [address] Kuldeep Starr M.D. Director [facility] # [id number] SEE RESULT BELOW Name: CELIA BARKER : [address]: Quincy Cross DO Acct: [id number] Unit: [id number] AGE: 59 Location: [facility] Re05/17/19 SEX: M Status: DEP REF SPEC: [id number] JOANA: 05/16/19-[address]: Quincy Cross DO REQ: [id number] RECD: 05/17/19 STATUS: JEZ ECHAVARRIA DR: Nomi Garcia MD _ ORDERED: LEVEL 4/4 COMMENTS: [id number] FINAL DIAGNOSIS 1. Duodenum, biopsy: -- Benign [...] CONTINUED ON NEXT PAGE DEPARTMENT OF PATHOLOGY, [address] [place] [address] Kuldeep Starr M.D. Director [facility] # [id number] RUN DATE: 05/21/19 [facility] LAB LIVE PAGE 2 Patient: CELIA BARKER [id number] (Continued) GROSS DESCRIPTION (Continued) 2. The specimen [...] 1251 END OF REPORT DEPARTMENT OF PATHOLOGY, [address] [place] [address] Kuldeep Starr M.D. Director [facility] # [id number] Procedures Date Code Description Status 05/17/2019 43826 Moderate Sedation Services; Same Phys Each Additional 15 Completed Mins 05/17/2019 25084 Moderate Sedation Services; Same Phys Intl 15 Mins; PT >= Completed 5 Years 05/17/2019 78959 EGD/Ball. Dilation-Less Than 30mm Completed 05/17/2019 59253 EGD+Biopsy Single Or Multiple Completed Medical Devices Description No Information Available Encounters Type Date Location Provider Dx Diagnosis Office Visit 04/12/2019 Gastroenterology Quincy Cross K21.9 Gastro- esophageal 2:45p [facility] DO reflux disease without esophagitis R14.0 Abdominal distension (gaseous) Assessments Date Code Description Provider 05/17/2019 K21.9 Gastro-esophageal reflux disease without [place]cy [place], DO esophagitis 05/17/2019 K29.70 Gastritis, unspecified, without bleeding Quincy Cross DO 04/12/2019 K21.9 Gastro-esophageal reflux disease without Quincy Cross, DO esophagitis 04/12/2019 R14.0 Abdominal distension (gaseous) Quincy Cross DO Plan of Treatment No Information Available Functional Status Description No Information Available Mental Status Description No Information Available Referrals Description No Information Available
[2019-09-24 10:22] VITALS: BP 129/63
--- NOTE | 2019-09-24 10:47 | UC ---
Ear Complaint HPI - HPI Summary HPI Summary: PATIENT IS RECOVERING FROM A RECENT URI. LAST NIGHT DEVELOPED RIGHT EAR PAIN AND MUTED HEARING. NO FEVER OR DRAINAGE FROM THE EAR. REPORTS HE GETS 1-2 EAR INFECTIONS EVERY WINTER. HAS SEEN ENT IN THE PAST. - History of Current Complaint Chief Complaint: UCEar Stated Complaint: EAR PAIN Time Seen by Provider: 09/24/19 10:33 Hx Obtained From: Patient Onset/Duration: Sudden Onset, Lasting Hours, Still Present Severity Initially: Moderate Severity Currently: Moderate Pain Intensity: 4 Pain Scale Used: 0-10 Numeric Aggravating Factors: Nothing Alleviating Factors: OTC Meds Associated Signs/Symptoms: Positive: Hearing Loss, URI Symptoms. Negative: Discharge - Allergies/Home Medications Allergies/Adverse Reactions: Allergies Allergy/AdvReac Type Severity Reaction Status Date / Time No Known Allergies Allergy Verified 08/23/19 13:11 PMH/Surg Hx/FS Hx/Imm Hx Previously Healthy: Yes - Surgical History Surgical History: Yes Surgery Procedure, Year, and Place: HERNIA REPAIR, TONSILLECTOMY, CERVICAL DISCECTOMY - Family History Known Family History: Positive: Cardiac Disease - [place], Other - [place] Negative: Hypertension, Diabetes - Social History Alcohol Use: Rare Substance Use Type: None Smoking Status (MU): Never Smoked Tobacco - Immunization History Most Recent Influenza Vaccination: fall 2012 Review of Systems All Other Systems Reviewed And Are Negative: Yes Constitutional: Positive: Negative ENT: Positive: Ear Ache, Nasal Discharge Respiratory: Positive: Cough Cardiovascular: Positive: Negative Gastrointestinal: Positive: Negative Physical Exam Triage Information Reviewed: Yes Appearance: Well-Appearing, No Pain Distress, Well-Nourished Vital Signs: Initial Vital Signs Temp 97.0 F 09/24/19 10:18 Pulse 70 09/24/19 10:18 Resp 18 09/24/19 10:18 BP 129/63 09/24/19 10:18 Pulse Ox 98 09/24/19 10:18 Vital Signs Reviewed: Yes Eyes: Positive: Conjunctiva Clear ENT: Positive: Hearing grossly normal, Pharynx normal, Other - LEFT TM NORMAL. RIGHT TM DULL, OPAQUE, BULGING Neck: Positive: Supple, Nontender, No Lymphadenopathy Respiratory Exam: Normal Cardiovascular Exam: Normal Abdomen Description: Positive: Soft Musculoskeletal: Positive: No Edema Neurological: Positive: Alert Psychological: Positive: Age Appropriate Behavior Skin: Negative: Rashes Ear Complaint Course/Dx - Differential Dx/Diagnosis Provider Diagnosis: Right otitis media Discharge ED - Sign-Out/Discharge Documenting (check all that apply): Patient Departure All imaging exams completed and their final reports reviewed: No Studies - Discharge Plan Condition: Stable Disposition: HOME Prescriptions: Amoxicillin PO (*) [Amoxicillin 500 MG CAP*] 1,000 mg PO Q12H #28 cap Patient Education Materials: Ear Infection (ED) Referrals: Nomi Garcia MD [Primary Care Provider] - If Needed Additional Instructions: RIGHT SIDED EAR INFECTION ON EXAM TODAY. TAKE THE ANTIBIOTICS FOR THE FULL COURSE. OTC MEDS NEEDED FOR DISCOMFORT. FOLLOW-UP WITH YOUR ENT IF YOU ARE NOT IMPROVING EXPECTED. - Billing Disposition and Condition Condition: STABLE Disposition: Home
== END 2019-09-24 10:47 | disposition home or self-care (01) ==
LOC: UCEAST 09:51
DX: H66.91 Otitis media, unspecified, right ear (principal); R09.89 Other specified symptoms and signs involving the circulatory and respiratory systems; R05 Cough
CPT/HCPCS: 99212; G0463